=== PATIENT | male | born 1950 | race African-American/Black ===

== ENCOUNTER 2017-01-02 12:37 | Inpatient (IN) | payer MEDICARE ==
[2017-01-02] VITALS (16 sets, daily range): BP systolic 111–177; BP diastolic 64–108; PULSE 84–135; RESP 17–20; TEMP 97.7–98.2; O2SAT 94–97
[2017-01-02] MEDS ORDERED: APIX2.5T PO (12:51)
[2017-01-02] MEDS ORDERED: LANTUS2P SQ (12:51)
[2017-01-02] MEDS ORDERED: SYNT25TA PO (12:51)
[2017-01-02] MEDS ORDERED: DILTIAZEM HCL 25 MG/5 ML VIAL IV PUSH ONE (13:00)
[2017-01-02] MEDS ORDERED: SODIUM CHLORIDE 0.9% FLUSH 10 ML FLUSH IVF PRN (13:00)
[2017-01-02] MEDS ORDERED: RESP: ALBUTEROL 2.5 MG/IPRATROPIUM 0.5 MG NEB (SCH) INH ONE (13:00)
--- NOTE | 2017-01-02 13:05 | PD ---
HPI Chief Complaint: Respiratory Symptoms Time Seen by Provider: 12:59 Travel History International Travel<30 days: No Contact w/Intl Traveler<30days: No History of Present Illness HPI 66 year old male with a PMH of cardiac bypass x2, hypothyroidism, DM type 2, partial nephrectomy, HTN, A-fib/flutter presents to the emergency department for evaluation of chest tightness, cough, intermittent wheezing, shortness of breath that he states started 2 months ago, but worsened this week. He recently traveled to [place] and he states his symptoms worsened while up there. Patient denies using tobacco products. No history of CHF, COPD, or asthma. He denies any fevers. Patient was initially seen at an Urgent Care and referred to the emergency department. Patient's can filler is Dr. Coles. [facility] Social History Alcohol Use: No Tobacco Use: No Substance Use: No Allergies-Medications (Allergen,Severity, Reaction): Coded Allergies: Beta Blockers (Verified Allergy, Severe, 01/02/17) Penicillin (Verified Allergy, Severe, 01/02/17) Iodine (Verified Allergy, Intermediate, 01/02/17) Reported Meds & Prescriptions Reported Meds & Active Scripts Active Reported Lantus Inj (Insulin Glargine) 1,000 Unit/10 Ml Vial 1 Units SQ HS Synthroid (Levothyroxine Sodium) 25 Mcg Tab 25 Mcg PO DAILY Eliquis (Apixaban) 2.5 Mg Tab 2.5 Mg PO BID Review of Systems Except as stated in HPI: all other systems reviewed are Neg Physical Exam Narrative GENERAL: Well-nourished, well-developed obese male patient, ambulatory. Afebrile. SKIN: Focused skin assessment warm/dry. HEAD: Normocephalic. Atraumatic. EYES: No scleral icterus. No injection or drainage. NECK: Supple, trachea midline. No JVD or lymphadenopathy. CARDIOVASCULAR: Regular rate and rhythm without murmurs, gallops, or rubs. RESPIRATORY: Breath sounds equal bilaterally. No accessory muscle use. Lung sounds with scattered rhonchi throughout. GASTROINTESTINAL: Abdomen soft, non-tender, nondistended. MUSCULOSKELETAL: No cyanosis, or edema. BACK: Nontender without obvious deformity. No CVA tenderness. Data Data Last Documented VS Vital Signs Date Time Temp Pulse Resp B/P Pulse Ox O2 Delivery O2 Flow Rate FiO2 01/02/17 13:34 96 Nasal Cannula 2.00 01/02/17 13:29 99 18 125/71 01/02/17 12:41 97.7 Orders Electrocardiogram (01/02/17 ) Complete Blood Count With Diff (01/02/17 12:54) Basic Metabolic Panel (Bmp) (01/02/17 12:54) B-Type Natriuretic Peptide (01/02/17 12:54) Act Partial Throm Time (Ptt) (01/02/17 12:54) Prothrombin Time / Inr (Pt) (01/02/17 12:54) Magnesium (Mg) (01/02/17 12:54) Ckmb (Isoenzyme) Profile (01/02/17 12:54) Troponin I (01/02/17 12:54) Blood Culture (01/02/17 12:54) Iv Access Insert/Monitor (01/02/17 12:54) Ecg Monitoring (01/02/17 12:54) Oximetry (01/02/17 12:54) Oxygen Administration (01/02/17 12:54) Chest, Single Ap (01/02/17 12:54) Sodium Chloride 0.9% Flush (Ns Flush) (01/02/17 13:00) Albuterol-Ipratropium Neb (Duoneb Neb) (01/02/17 13:00) Lactic Acid Sepsis Protocol (01/02/17 12:54) Diltiazem Inj (Cardizem Inj) (01/02/17 13:00) Diltiazem Inj (Cardizem Inj) (01/02/17 14:45) Labs Laboratory Tests Test 01/02/17 01/02/17 13:15 13:19 White Blood Count 8.4 TH/MM3 Red Blood Count 4.91 MIL/MM3 Hemoglobin 14.8 GM/DL Hematocrit 43.5 % Mean Corpuscular Volume 88.6 FL Mean Corpuscular Hemoglobin 30.2 PG Mean Corpuscular Hemoglobin 34.1 % Concent Red Cell Distribution Width 14.6 % Platelet Count 151 TH/MM3 Mean Platelet Volume 10.3 FL Neutrophils (%) (Auto) 68.3 % Lymphocytes (%) (Auto) 19.1 % Monocytes (%) (Auto) 10.5 % Eosinophils (%) (Auto) 1.4 % Basophils (%) (Auto) 0.7 % Neutrophils # (Auto) 5.8 TH/MM3 Lymphocytes # (Auto) 1.6 TH/MM3 Monocytes # (Auto) 0.9 TH/MM3 Eosinophils # (Auto) 0.1 TH/MM3 Basophils # (Auto) 0.1 TH/MM3 CBC Comment DIFF FINAL Differential Comment Prothrombin Time 12.0 SEC Prothromb Time International 1.1 RATIO Ratio Activated Partial 30.2 SEC Thromboplast Time Sodium Level 137 MEQ/L Potassium Level 4.4 MEQ/L Chloride Level 103 MEQ/L Carbon Dioxide Level 27.0 MEQ/L Anion Gap 7 MEQ/L Blood Urea Nitrogen 27 MG/DL Creatinine 1.36 MG/DL Estimat Glomerular Filtration 64 ML/MIN Rate Random Glucose 158 MG/DL Calcium Level 8.9 MG/DL Magnesium Level 1.9 MG/DL Total Creatine Kinase 89 U/L Troponin I 0.05 NG/ML B-Type Natriuretic Peptide 311 PG/ML Lactic Acid Level 0.8 mmol/L MDM Medical Decision Making Medical Screen Exam Complete: Yes Emergency Medical Condition: Yes Medical Record Reviewed: Yes Interpretation(s) chest x-ray - CONCLUSION: No acute cardiopulmonary disease. Differential Diagnosis PNA vs. CHF vs. ACS vs. PE Narrative Course 66 year old male presents to the emergency department for evaluation of chest tightness, sob, cough, wheezing for 2 months, but worsened over the past week. EKG shows atrial flutter with RVR, HR 134. CBC, BMP, Magnesium, CK, troponin, BNP, lactic acid, blood cultures x2, PTT, PT/INR are ordered and bending. Chest x-ray is ordered and pending. Patient is given Cardizem 0.25 mg/kg IV for RVR. Patient is given duoneb x1. CBC shows no acute abnormalities. BMP shows elevated BUN/creatinine of 27/1.36 , glucose of 158. Magnesium is 1.9. CK is 89. Troponin is less than 0.05. Lactic Acid 0.8. PT is 12.0, PTT is 30.2, INR is 1.1. Chest x-ray shows no acute cardiopulmonary disease. Hr is back up to 120 after Cardizem bolus. Patient is started on a Cardizem drip. [facility] is paged for admission. Dr. Vizcaino accepted admission and would like the patient to be admitted as an inpatient. Diagnosis Primary Impression: Atrial flutter with rapid ventricular response Additional Impression: Chest pain Qualified Code: R07.9 - Chest pain, unspecified type Admitting Information Admitting Physician Requests: Admit Frances Can Jan 02, 2017 13:05
[2017-01-02 13:41] LABS: AUTOMATED NEUTROPHIL # 5.8 TH/MM3 (1.8-7.7); BASOPHIL # 0.1 TH/MM3 (0-0.2); BASOPHIL % 0.7 % (0.0-2.0); EOSINOPHIL # 0.1 TH/MM3 (0-0.4); EOSINOPHIL % 1.4 % (0.0-4.0); HEMATOCRIT 43.5 % (39.0-51.0); HEMO FLAGS DIFF FINAL; LYMPH % 19.1 % (9.0-44.0); LYMPHOCYTE # 1.6 TH/MM3 (1.0-4.8); MEAN CELL VOLUME 88.6 FL (80.0-100.0); MEAN CORPUSCULAR HEMOGLOBIN 30.2 PG (27.0-34.0); MEAN CORPUSCULAR HGB CONC 34.1 % (32.0-36.0); MONO % 10.5 % (0.0-8.0); NEUT % 68.3 % (16.0-70.0); PLATELET COUNT 151 TH/MM3 (150-450); RED BLOOD COUNT 4.91 MIL/MM3 (4.50-5.90); RED CELL DISTRIBUTION WIDTH 14.6 % (11.6-17.2); WHITE BLOOD COUNT 8.4 TH/MM3 (4.0-11.0)
[2017-01-02 13:50] LABS: APTT (PATIENT) 30.2 SEC (24.3-30.1); INTERNATIONAL NORMALIZED RATIO 1.1 RATIO
--- NOTE | 2017-01-02 14:17 | RADRPT ---
EXAM DATE/TIME: 01/02/2017 13:55 [place] COMPARISON: No previous studies available for comparison. INDICATIONS : Shortness of breath. MEDICAL HISTORY : Cardiovascular disease. SURGICAL HISTORY : CABG. ENCOUNTER: Initial ACUITY: 1 day PAIN SCORE: 0/10 LOCATION: Bilateral chest FINDINGS: The lungs are clear without infiltrate, nodule, or mass. There is no appreciable pleural effusion fo r technique. Slight cardiomegaly is seen. There is evidence for prior median sternotomy. Chronic dege nerative changes are present in bilateral shoulders and not changed. CONCLUSION: No acute cardiopulmonary disease. Levon Grier MD on January 02, 2017 at 14:15 Board Certified Radiologist. This report was verified electronically.
[2017-01-02 14:22] LABS: MAGNESIUM 1.9 MG/DL (1.5-2.5); POTASSIUM 4.4 MEQ/L (3.5-5.1)
[2017-01-02] MEDS: DILTIAZEM INJ 125 MG in SODIUM CHLORIDE 0.9% INJ 100 ML IV SCH ×2 (15:13→21:48)
[2017-01-02] MEDS ORDERED: SENNOSIDES 8.6 MG TAB PO PRN (16:45)
[2017-01-02] MEDS ORDERED: MORPHINE SULFATE 4 MG/ML INJ IV PRN (16:45)
[2017-01-02] MEDS ORDERED: SODIUM CHLORIDE 0.9% FLUSH 10 ML FLUSH IV FLUSH PRN (16:45)
[2017-01-02] MEDS ORDERED: ACETAMINOPHEN 325 MG TAB PO PRN ×2 (16:45)
[2017-01-02] MEDS ORDERED: NALOXONE HCL 0.4 MG/ML AMP IV PRN (16:45)
[2017-01-02] MEDS ORDERED: ZOLPIDEM TARTRATE 5 MG TAB PO PRN (17:00)
[2017-01-02] MEDS ORDERED: LORazepam 0.5 MG TAB PO PRN (17:45)
[2017-01-02] MEDS ORDERED: AZITHROMYCIN 250 MG TAB PO ONE (17:45)
--- NOTE | 2017-01-02 17:46 | HHI.HP ---
[facility] [place] Clement Correa MD Admission Diagnosis A-flutter wtih RVR, chest pain Diagnoses: Chief Complaint: Cough, chest pressure Travel History International Travel<30 Days: No Contact w/Intl Traveler <30 Da: No History of Present Illness The patient is a 66-year-old male with past medical history of CAD status post CABG and diabetes who is presenting to the hospital with cold-like symptoms and chest pressure. The patient says that he has had cold like symptoms for the past month and a half or so. He says he came down with a cough and a feeling of congestion. He says he went to his sales and marketing vice president who changed some of the medications around because he thought the cough might be related to a medication allergy. The patient was taken off of his digitoxin and diltiazem. The patient has traveled to [place] recently and came back yesterday. He said while he was traveling his cough and congestion was quite severe. He also describes chest pressure at night when trying to sleep. He does not have outright chest pain. He went to urgent care earlier today and was referred to the hospital. The patient says he does not feel any palpitations. The patient feels like he might have a sinus problem. He has had diarrhea recently but that has resolved. He does endorse some urinary urgency. He says that he has not had any fevers. He has not had a productive cough, his cough has been dry. He does notice his legs have been swelling lately but he does state that he has been eating salty foods as he was traveling and eating unhealthy. Review of Systems Except as stated in HPI: all other systems reviewed are Neg Past Family Social History Past Medical History CAD status post CABG 2 Diabetes Hypertension Hyperlipidemia Hypothyroidism Spinal stenosis Allergies: Coded Allergies: Beta Blockers (Verified Allergy, Severe, 01/02/17) Penicillin (Verified Allergy, Severe, 01/02/17) Iodine (Verified Allergy, Intermediate, 01/02/17) Active Ordered Medications Current Medications Medications (Trade) Dose Ordered Sig/Caren Route Start Time Stop Time Status Last Admin (Cardizem Inj/NS Inj) 125 ml @ 0 mls/hr TITRATE IV 01/02/17 14:45 01/02/17 15:13 (Eliquis) 2.5 mg BID PO 01/02/17 21:00 (Synthroid) 25 mcg DAILY@06 PO 01/03/17 06:00 (NS Flush) 2 ml UNSCH PRN IV FLUSH 01/02/17 16:45 (NS Flush) 2 ml BID IV FLUSH 01/02/17 21:00 (Tylenol) 650 mg Q4H PRN PO 01/02/17 16:45 (Colace) 100 mg Q12HR PO 01/02/17 21:00 (Senokot) 17.2 mg Q12H PRN PO 01/02/17 16:45 (Ambien) 5 mg HS PRN PO 01/02/17 17:00 (Tylenol) 650 mg Q6H PRN PO 01/02/17 16:45 (Roxicodone) 10 mg Q4H PRN PO 01/02/17 16:45 (Morphine Inj) 4 mg Q3H PRN IV 01/02/17 16:45 (Roxicodone) 5 mg Q4H PRN PO 01/02/17 16:45 (Narcan Inj) 0.4 mg UNSCH PRN IV 01/02/17 16:45 (Cardizem) 60 mg Q6HR PO 01/02/17 18:00 UNV (Levemir Inj) 15 units HS SQ 01/02/17 21:00 UNV (Levemir Inj) 25 units DAILY SQ 01/03/17 09:00 UNV (Ativan) 0.5 mg Q6H PRN PO 01/02/17 17:45 UNV (Zithromax) 500 mg ONCE ONCE PO 01/02/17 17:45 01/02/17 17:46 UNV (Zithromax) 250 mg DAILY PO 01/03/17 09:00 UNV Family History CAD CVA Social History The patient quit smoking 36 years ago. He has rare alcohol intake. Physical Exam Vital Signs Vital Signs Date Time Temp Pulse Resp B/P Pulse Ox O2 Delivery O2 Flow Rate FiO2 01/02/17 17:32 108 18 140/70 97 Nasal Cannula 2 01/02/17 17:19 111 20 130/90 96 Nasal Cannula 2 01/02/17 16:24 100 18 112/64 97 Nasal Cannula 2 01/02/17 16:04 89 18 122/77 97 Nasal Cannula 2 01/02/17 15:14 130 18 125/73 97 Nasal Cannula 2 01/02/17 13:34 96 Nasal Cannula 2.00 01/02/17 13:29 99 18 125/71 96 Nasal Cannula 2 01/02/17 13:00 95 Nasal Cannula 2 01/02/17 12:59 97 Nasal Cannula 2 01/02/17 12:53 135 18 96 Nasal Cannula 2 01/02/17 12:52 130 18 177/108 95 Room Air 01/02/17 12:41 97.7 135 17 173/104 97 Physical Exam GENERAL: This is a well-nourished, well-developed patient, in no apparent distress. SKIN: No rashes, ecchymoses or lesions. Cool and dry. HEAD: Atraumatic. Normocephalic. No temporal or scalp tenderness. EYES: Pupils equal round and reactive. Extraocular motions intact. No scleral icterus. No injection or drainage. ENT: Nose without bleeding, purulent drainage or septal hematoma. Throat without erythema, tonsillar hypertrophy or exudate. Uvula midline. Airway patent. NECK: Trachea midline. No JVD or lymphadenopathy. Supple, nontender, no meningeal signs. CARDIOVASCULAR: Tachycardic. Irregularly irregular rhythm without murmurs, gallops, or rubs. RESPIRATORY: Bilateral rhonchi appreciated. Mild wheezing. GASTROINTESTINAL: Abdomen soft, non-tender, nondistended. No hepato-splenomegaly , or palpable masses. No guarding. MUSCULOSKELETAL: Trace to 1+ edema in the lower extremities. NEUROLOGICAL: Awake and alert. Cranial nerves II through XII intact. Motor and sensory grossly within normal limits. Five out of 5 muscle strength in all muscle groups. Normal speech. PSYCH: Mood and affect appropriate. Laboratory Laboratory Tests Test 01/02/17 01/02/17 13:15 13:19 White Blood Count 8.4 Red Blood Count 4.91 Hemoglobin 14.8 Hematocrit 43.5 Mean Corpuscular Volume 88.6 Mean Corpuscular Hemoglobin 30.2 Mean Corpuscular Hemoglobin 34.1 Concent Red Cell Distribution Width 14.6 Platelet Count 151 Mean Platelet Volume 10.3 Neutrophils (%) (Auto) 68.3 Lymphocytes (%) (Auto) 19.1 Monocytes (%) (Auto) 10.5 Eosinophils (%) (Auto) 1.4 Basophils (%) (Auto) 0.7 Neutrophils # (Auto) 5.8 Lymphocytes # (Auto) 1.6 Monocytes # (Auto) 0.9 Eosinophils # (Auto) 0.1 Basophils # (Auto) 0.1 CBC Comment DIFF FINAL Differential Comment Prothrombin Time 12.0 Prothromb Time International 1.1 Ratio Activated Partial 30.2 Thromboplast Time Sodium Level 137 Potassium Level 4.4 Chloride Level 103 Carbon Dioxide Level 27.0 Anion Gap 7 Blood Urea Nitrogen 27 Creatinine 1.36 Estimat Glomerular Filtration 64 Rate Random Glucose 158 Calcium Level 8.9 Magnesium Level 1.9 Total Creatine Kinase 89 Troponin I 0.05 B-Type Natriuretic Peptide 311 Lactic Acid Level 0.8 Date/Time Procedure Status Source Growth 01/02/17 13:19 Aerobic Blood Culture Received Blood Peripheral Pending 01/02/17 13:19 Anaerobic Blood Culture Received Blood Peripheral Pending Result Diagram: 01/02/17 1315 01/02/17 1315 Imaging Last Impressions Chest X-Ray 01/02/17 1254 Signed Impressions: Service Date/Time: Monday, January 02, 2017 13:55 - CONCLUSION: No acute cardiopulmonary disease. Levon Grier MD Assessment and Plan Assessment and Plan A fib with RVR The patient says he has had atrial fibrillation since 2008. He says recently his sales and marketing vice president took him off of digoxin and diltiazem because there was concern it might be giving him an allergic reaction. Heart rate has been quite elevated in the emergency department and a Cardizem drip was started. Initial troponin 0.05. The patient said he had an echocardiogram done about a couple of weeks ago. - Continue Cardizem drip. Add by mouth Cardizem at 60 mg every 6 hours. - Telemetry. - Check a TSH. The patient is on levothyroxine. - Continue Eliquis. Bronchitis The patient has had symptoms consistent with bronchitis for the past month and a half. Chest x-ray unremarkable. Patient with wheezing and rhonchi on exam. - Nebulizer treatments. - Start a Z-Ivan. - Steroids if needed. DM The patient is on Lantus as an outpatient. - Start Levemir at a lower dose. - Insulin sliding scale. Lower extremity edema BNP is elevated at over 300. He denies a history of heart failure, although he has had CABG 2. He said he recently had an echocardiogram done. - Low salt diet. - Keep legs elevated. - SABRINA stockings. - Fluid restriction. - Outpatient follow-up with cardiology. Renal insufficiency Unsure of baseline. - Continue to monitor. - Avoid nephrotoxic agents. PPx: Eliquis Code Status Full. Discussed Condition With Frances Can, pt. Physician Certification 2 Midnight Certification Type: Admission for Inpatient Services Order for Inpatient Services The services are ordered in accordance with Medicare regulations or non- Medicare payer requirements, as applicable. In the case of services not specified as inpatient-only, they are appropriately provided as inpatient services in accordance with the 2-midnight benchmark. Estimated LOS (days): 2 days is the estimated time the patient will need to remain in the hospital, assuming treatment plan goals are met and no additional complications. Post-Hospital Plan: Home Enzo Vizcaino DO Jan 02, 2017 17:46
[2017-01-02] MEDS: DILTIAZEM HCL 60 MG TAB PO SCH ×2 (17:51→23:18)
[2017-01-02] MEDS: RESP: ALBUTEROL 2.5 MG/IPRATROPIUM 0.5 MG NEB (SCH) NEB (17:55)
[2017-01-02] MEDS: DOCUSATE SODIUM 100 MG CAP PO SCH (20:39)
[2017-01-02] MEDS: APIXABAN 2.5 MG TABLET PO SCH (20:39)
[2017-01-02] MEDS: SODIUM CHLORIDE 0.9% FLUSH 10 ML FLUSH IV FLUSH SCH (20:40)
[2017-01-02] MEDS ORDERED: INSULIN DETEMIR 100 UNITS/ML VIAL SQ SCH (21:00)
[2017-01-02] MEDS: RESP: ALBUTEROL 2.5 MG/IPRATROPIUM 0.5 MG NEB (PRN) NEB (23:28)
[2017-01-03] VITALS (19 sets, daily range): BP systolic 129–154; BP diastolic 89–96; PULSE 76–132; RESP 16–18; TEMP 97.4–97.8; O2SAT 90–95
[2017-01-03] MEDS ORDERED: guaiFENesin/CODEINE SYRUP 200 MG/20 MG/10 ML CUP PO PRN (01:00)
[2017-01-03 01:27] LABS: AUTOMATED NEUTROPHIL # 6.8 TH/MM3 (1.8-7.7); BASOPHIL # 0.1 TH/MM3 (0-0.2); BASOPHIL % 0.6 % (0.0-2.0); EOSINOPHIL # 0.1 TH/MM3 (0-0.4); EOSINOPHIL % 1.4 % (0.0-4.0); HEMATOCRIT 43.2 % (39.0-51.0); HEMO FLAGS DIFF FINAL; LYMPH % 17.9 % (9.0-44.0); LYMPHOCYTE # 1.8 TH/MM3 (1.0-4.8); MEAN CELL VOLUME 88.9 FL (80.0-100.0); MEAN CORPUSCULAR HEMOGLOBIN 29.2 PG (27.0-34.0); MEAN CORPUSCULAR HGB CONC 32.8 % (32.0-36.0); MONO % 11.1 % (0.0-8.0); PLATELET COUNT 145 TH/MM3 (150-450); RED BLOOD COUNT 4.85 MIL/MM3 (4.50-5.90); RED CELL DISTRIBUTION WIDTH 14.5 % (11.6-17.2); WHITE BLOOD COUNT 9.9 TH/MM3 (4.0-11.0)
[2017-01-03 01:37] LABS: POTASSIUM 4.1 MEQ/L (3.5-5.1)
[2017-01-03] MEDS: DILTIAZEM HCL 60 MG TAB PO SCH ×2 (04:21→12:22)
[2017-01-03] MEDS ORDERED: LEVOTHYROXINE SODIUM 25 MCG TAB PO SCH (06:00)
[2017-01-03] MEDS: RESP: ALBUTEROL 2.5 MG/IPRATROPIUM 0.5 MG NEB (SCH) NEB (08:00)
[2017-01-03] MEDS ORDERED: predniSONE 50 MG TAB PO SCH (09:00)
[2017-01-03] MEDS: SODIUM CHLORIDE 0.9% FLUSH 10 ML FLUSH IV FLUSH SCH (09:00)
[2017-01-03] MEDS ORDERED: AZITHROMYCIN 250 MG TAB PO SCH (09:00)
[2017-01-03] MEDS ORDERED: INSULIN DETEMIR 100 UNITS/ML VIAL SQ SCH (09:00)
--- NOTE | 2017-01-03 09:16 | HHI.PR ---
Subjective Remarks The patient says that he is feeling better. He said he had a rough night because the bed was uncomfortable and he was coughing a lot. She said that his breathing seems better and overall he feels better and ready to go home. He stated that his sound technician supervisor told him to stop his heart rate medicine for only a couple of days but the patient decided to stop it for longer than that. Discussed with nursing. Objective Vitals Vital Signs Date Time Temp Pulse Resp B/P Pulse Ox O2 Delivery O2 Flow Rate FiO2 01/03/17 08:17 94 21 01/03/17 07:40 97.4 109 18 144/90 90 01/03/17 07:40 90 Room Air 01/03/17 06:00 90 01/03/17 05:00 84 01/03/17 04:00 90 01/03/17 04:00 97.8 78 18 129/89 91 01/03/17 03:00 96 01/03/17 02:00 90 01/03/17 01:00 98 01/03/17 00:00 95 01/03/17 00:00 97.7 103 18 135/96 95 01/02/17 23:00 84 01/02/17 22:00 88 01/02/17 21:00 90 01/02/17 20:00 99 01/02/17 20:00 98.2 88 18 111/72 94 01/02/17 18:30 112 01/02/17 18:30 135 18 135/97 95 01/02/17 17:52 99 18 120/81 97 Nasal Cannula 2 01/02/17 17:32 108 18 140/70 97 Nasal Cannula 2 01/02/17 17:19 111 20 130/90 96 Nasal Cannula 2 01/02/17 16:24 100 18 112/64 97 Nasal Cannula 2 01/02/17 16:04 89 18 122/77 97 Nasal Cannula 2 01/02/17 15:14 130 18 125/73 97 Nasal Cannula 2 01/02/17 13:34 96 Nasal Cannula 2.00 01/02/17 13:29 99 18 125/71 96 Nasal Cannula 2 01/02/17 13:00 95 Nasal Cannula 2 01/02/17 12:59 97 Nasal Cannula 2 01/02/17 12:53 135 18 96 Nasal Cannula 2 01/02/17 12:52 130 18 177/108 95 Room Air 01/02/17 12:41 97.7 135 17 173/104 97 I/O 01/02/17 01/02/17 01/02/17 01/03/17 01/03/17 01/03/17 07:00 15:00 23:00 07:00 15:00 23:00 Output Total 400 ml 650 ml Balance -400 ml -650 ml Output Urine Total 400 ml 650 ml # Voids 1 Result Diagram: 01/03/17 0110 01/03/17 0110 Imaging Last Impressions Chest X-Ray 01/02/17 1254 Signed Impressions: Service Date/Time: Monday, January 02, 2017 13:55 - CONCLUSION: No acute cardiopulmonary disease. Levon Grier MD Objective Remarks GENERAL: This is a well-nourished, well-developed patient, in no apparent distress. SKIN: No rashes, ecchymoses or lesions. Cool and dry. HEAD: Atraumatic. Normocephalic. No temporal or scalp tenderness. EYES: Pupils equal round and reactive. Extraocular motions intact. No scleral icterus. No injection or drainage. ENT: Nose without bleeding, purulent drainage or septal hematoma. Throat without erythema, tonsillar hypertrophy or exudate. Uvula midline. Airway patent. NECK: Trachea midline. No JVD or lymphadenopathy. Supple, nontender, no meningeal signs. CARDIOVASCULAR: Irregularly irregular rhythm without murmurs, gallops, or rubs. RESPIRATORY: Clear to auscultation bilaterally. GASTROINTESTINAL: Abdomen soft, non-tender, nondistended. No hepato-splenomegaly , or palpable masses. No guarding. MUSCULOSKELETAL: Trace to 1+ edema in the lower extremities. NEUROLOGICAL: Awake and alert. Cranial nerves II through XII intact. Motor and sensory grossly within normal limits. Five out of 5 muscle strength in all muscle groups. Normal speech. PSYCH: Mood and affect appropriate. Medications and IVs Current Medications Medications (Trade) Dose Ordered Sig/Caren Route Start Time Stop Time Status Last Admin (Cardizem Inj/NS Inj) 125 ml @ 0 mls/hr TITRATE IV 01/02/17 14:45 01/02/17 21:48 (Eliquis) 2.5 mg BID PO 01/02/17 21:00 01/02/17 20:39 (Synthroid) 25 mcg DAILY@06 PO 01/03/17 06:00 01/03/17 04:21 (NS Flush) 2 ml UNSCH PRN IV FLUSH 01/02/17 16:45 (NS Flush) 2 ml BID IV FLUSH 01/02/17 21:00 (Tylenol) 650 mg Q4H PRN PO 01/02/17 16:45 (Colace) 100 mg Q12HR PO 01/02/17 21:00 (Senokot) 17.2 mg Q12H PRN PO 01/02/17 16:45 (Ambien) 5 mg HS PRN PO 01/02/17 17:00 (Tylenol) 650 mg Q6H PRN PO 01/02/17 16:45 (Roxicodone) 10 mg Q4H PRN PO 01/02/17 16:45 (Morphine Inj) 4 mg Q3H PRN IV 01/02/17 16:45 (Roxicodone) 5 mg Q4H PRN PO 01/02/17 16:45 01/03/17 06:21 (Narcan Inj) 0.4 mg UNSCH PRN IV 01/02/17 16:45 (Cardizem) 60 mg Q6HR PO 01/02/17 18:00 01/03/17 04:21 (Levemir Inj) 15 units HS SQ 01/02/17 21:00 01/02/17 20:38 (Levemir Inj) 25 units DAILY SQ 01/03/17 09:00 (Ativan) 0.5 mg Q6H PRN PO 01/02/17 17:45 01/02/17 23:18 (Zithromax) 250 mg DAILY PO 01/03/17 09:00 (Robitussin Ac 200-20 Mg/10 ml Liq) 10 ml Q6H PRN PO 01/03/17 01:00 01/03/17 01:27 (Deltasone) 50 mg DAILY PO 01/03/17 09:00 (Claritin) 10 mg DAILY PO 01/03/17 09:15 UNV ([place] [employer] [place]) 2 spray ONCE ONCE EACH NARE 01/03/17 09:15 01/03/17 09:16 UNV A/P Assessment and Plan A fib with RVR The patient says he has had atrial fibrillation since 2008. He says recently his sound technician supervisor took him off of digoxin and diltiazem because there was concern it might be giving him an allergic reaction. Heart rate has been quite elevated in the emergency department and a Cardizem drip was started. Troponin peaked at 0.05. The patient said he had an echocardiogram done about a couple of weeks ago. TSH WNL. - Continue Cardizem drip. Added by mouth Cardizem at 60 mg every 6 hours. HR currently controlled. - Telemetry. - Continue Eliquis. - outpt cardiology follow-up. Bronchitis The patient has had symptoms consistent with bronchitis and postnasal drip for the past month and a half. Chest x-ray unremarkable. Patient with wheezing and rhonchi on exam. Improved. - Nebulizer treatments. - Start a Z-Ivan. - quick prednisone taper. - home oxygen walk test. DM The patient is on Lantus as an outpatient. - Start Levemir at a lower dose. - Insulin sliding scale. Lower extremity edema BNP is elevated at over 300. He denies a history of heart failure, although he has had CABG 2. He said he recently had an echocardiogram done. - Low salt diet. - Keep legs elevated. - SABRINA stockings. - Fluid restriction. - Outpatient follow-up with cardiology. Renal insufficiency Unsure of baseline. - Continue to monitor. Improved. - Avoid nephrotoxic agents. PPx: Eliquis. Discharge Planning Anticipate d/c later today if HR remains well controlled. Enzo Vizcaino DO Jan 03, 2017 09:16
[2017-01-03] MEDS ORDERED: DILT-64 PO ×2 (09:22→12:31)
[2017-01-03] MEDS ORDERED: PRED50 PO (09:22)
[2017-01-03] MEDS ORDERED: AZIT250T3 PO (09:22)
[2017-01-03] MEDS ORDERED: LORA-392 PO (09:22)
[2017-01-03] MEDS ORDERED: GUAI100S5 PO (09:22)
[2017-01-03] MEDS ORDERED: OXYC-392 PO (09:22)
[2017-01-03] MEDS ORDERED: LORA-361 PO (09:22)
[2017-01-03] MEDS: DOCUSATE SODIUM 100 MG CAP PO SCH (09:54)
[2017-01-03] MEDS: APIXABAN 2.5 MG TABLET PO SCH (09:54)
[2017-01-03] MEDS ORDERED: SODIUM CHLORIDE 0.65% NASAL SPRAY 45 ML BTL EACH NARE ONE (10:00)
[2017-01-03] MEDS ORDERED: LORATADINE 10 MG TAB PO SCH (10:00)
[2017-01-03] MEDS ORDERED: INSULIN ASPART SUPPLEMENTAL SCALE SQ SCH (11:00)
[2017-01-03] MEDS: RESP: ALBUTEROL 2.5 MG/IPRATROPIUM 0.5 MG NEB (PRN) NEB (11:29)
[2017-01-03] MEDS ORDERED: RESP: ALBUTEROL 2.5 MG/IPRATROPIUM 0.5 MG NEB (SCH) NEB (12:31)
--- NOTE | 2017-01-03 12:31 | HHI.FF ---
Face to Face Verification Diagnosis: (1) Atrial flutter with rapid ventricular response (2) Hypoxemia (3) Bronchitis Home Health Nursing Order: Medical education Signs/symptoms of disease process Diabetic education Oxygen administration education Medication education-adverse effect Nursing assessment with vital signs I have seen patient Chad Munoz on 01/03/17. My clinical findings support the need for the requested home health care services because: Patient has SOB I certify that my clinical findings support that this patient is homebound because: Hx COPD- exertion dyspnea/weakness Enzo Vizcaino DO Jan 03, 2017 12:30
[2017-01-03] MEDS ORDERED: OXYGENTANK NAS.CANULA (12:55)
[2017-01-03 14:03] LABS: BICARBONATE 25.6 MEQ/L (21.0-32.0); POTASSIUM 4.3 MEQ/L (3.5-5.1)
--- NOTE | 2017-01-03 15:41 | PD.AMA ---
Against Medical Advice Note Discharge Disposition: Against Medical Advice Pt Condition on Discharge: Stable Recommended Treatment Course The patient was told to stay in the hospital for further improvement in his heart rate control as well as respiratory status. Per the home oxygen walk test required oxygen in case management was working on obtaining that. The patient understood the risks of leaving the hospital early and stated that he wished to do so anyways. He said he will follow-up with his mixed crop and livestock farmer in 2 days. He said he will return to the hospital if he feels poorly. AMA Statement Patient Chad Munoz has decided to leave the hospital against medical advice. This patient has the capacity to refuse care and understands the risks of leaving, including permanent disability and/or , and has had an opportunity to ask questions about his condition. The patient has been informed that he may return for care at any time, and follow up has been arranged/advised. Enzo Vizcaino DO Jan 03, 2017 15:41
--- NOTE | 2017-01-03 16:30 | EKG ---
Date Performed: 01/02/2017 Time Performed: 12:52:12 PTAGE: 66 years EKG: ATRIAL FLUTTER/TACHYCARDIA WITH RAPID VENTRICULAR RESPONSE MARKED RIGHT AXIS DEVIATION RIGH T BUNDLE BRANCH BLOCK ABNORMAL ECG NO PREVIOUS TRACING DOCTOR: Prabhu Nolasco Interpretating Date/Time 01/03/2017 16:28:20
--- NOTE | 2017-01-04 11:55 | EKG ---
Date Performed: 01/03/2017 Time Performed: 09:08:14 PTAGE: 66 years EKG: Atrial fibrillation/Flutter Right bundle branch block Inferior T wave changes are nonspecif ic Abnormal ECG PREVIOUS TRACING : 01/02/2017 12.52 Compared to prior tracing no significant change DOCTOR: Júnior Hinojosa Interpretating Date/Time 01/04/2017 11:55:05
== END 2017-01-03 15:57 | disposition left against medical advice (07) | DRG 310 ==
LOC: NEPC 12:37 → NEDA 15:05 → HCIS 18:14
PROVIDERS: ADMIT Hospitalist; ATTEND Hospitalist
DX: I48.91 Unspecified atrial fibrillation (principal); Z95.1 Presence of aortocoronary bypass graft; I10 Essential (primary) hypertension; J40 Bronchitis, not specified as acute or chronic; I48.92 Unspecified atrial flutter; E03.9 Hypothyroidism, unspecified; E11.9 Type 2 diabetes mellitus without complications; I25.10 Atherosclerotic heart disease of native coronary artery without angina pectoris; R39.15 Urgency of urination; E78.5 Hyperlipidemia, unspecified; Z79.4 Long term (current) use of insulin; Z87.891 Personal history of nicotine dependence
CPT/HCPCS: 71010; 80048; 82550; 82948; 83605; 83735; 83880; 84443; 84484; 85025; 85610; 85730; 87040; 93005; 94620; 94640; 94664; 96374; J1815; J7512